=== PATIENT | female | born 1950 | race Caucasian/White ===

== ENCOUNTER 2017-10-30 11:00 | Outpatient (RCR) | payer MEDICARE, OTHER ==
[2017-10-28 13:45] VITALS: BP 135/90
[2017-10-28 14:21] LABS: PLATELET COUNT, AUTOMATED 229 K/uL (150-450)
[2017-10-28 14:36] LABS: LDL CHOLESTEROL 149 mg/dl
[~2017-10-30] VITALS: Ht 167.6 cm; Wt 68.0 kg
[~2017-10-30 11:00] MED LIST: ACE3 PO; ACET-2031 PO; ANAS1TAB34 PO; CALC500T6 PO; ERGO400T9 PO; FLAX100041 PO; GLUC100026 PO; LOSA-54 PO; METO-235 PO; MULT-1372 PO; MULT1CAP59 PO; [UNRECOGNIZED DRUG - REMARK] PO
[2017-10-30 11:07] VITALS: BP 145/89
--- NOTE | 2017-10-30 19:13 | ONCOLOGY FOLLOW UP NOTE ---
EVENT DATE: October 30, 2017 REASON FOR FOLLOWUP Breast cancer. INTERIM HISTORY Ms. Lang returns to clinic for a follow-up visit today. She reports that she has been feeling quite well in general. 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 She continues to take anastrozole 1 mg p.o. daily. She has had minimal if any side effects from the medication. She reports very little hot flashes. Her energy level is good. Her appetite is good, and her weight has been stable. Her mood has been good, as well. She has noticed no breast or skin changes. She has noticed no lumps or bumps under the arms. She denies shortness of breath, chest pain, or cough. She has had no changes in her bowel habits. She is quite happy about how things are going. She tends to stay quite active, and she eats a healthful diet. She does report a history of slightly elevated calcium in the past. She had been taking a calcium supplement previously. She has kept up with bone mineral density scans, as well as mammograms, with mammogram recently performed being unremarkable. She is here to establish care in my clinic here in [place]. She had previously been followed by Dr. Lc vega. REVIEW OF SYSTEMS Otherwise negative, and all systems were reviewed. ONCOLOGY HISTORY 1. Initial diagnosis of breast cancer in 2002, reportedly T2 N0 M0, ER negative , HER2 negative. Status post lumpectomy and adjuvant radiation therapy. 2. Left breast cancer diagnosed May,. a. July 11, 2011: Left mastectomy, and reconstruction is performed. No residual tumor was noted from original biopsy specimen, which had shown an invasive component of 0.3 cm or less. She had 0/5 lymph nodes positive at that time. ER positive, NM negative, HER2 negative. b. November 21, 2011: Patient initiates adjuvant Arimidex. c. Patient has had ongoing clinical surveillance, as well as right mammograms which have shown no evidence of malignancy. She has had routine DEXA scans, as well. PAST MEDICAL HISTORY 1. History of breast cancer, as above. 2. History of mild hypercalcemia, thought potentially to be due to calcium supplementation. 3. Hypertension. 4. Reported history of osteopenia. CURRENT MEDICATIONS 1. Anastrozole 1 mg p.o. daily. 2. Losartan/hydrochlorothiazide daily. 3. Glucosamine daily. 4. Flaxseed oil daily. 5. Multivitamin daily. 6. Vitamin D supplement daily. ALLERGIES KEFLEX. 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 There is no history of alcohol abuse or illicit drug use. FAMILY HISTORY There is a reported family history of colon cancer as well as gastric cancer. VITAL SIGNS Temperature is 97.0, blood pressure 145/89, heart rate is 88, respirations 16, oxygen saturation is 97% on room air. Weight is 68 kg. PHYSICAL EXAMINATION GENERAL: Patient is alert and oriented times three, in no acute distress sitting in the exam room chair. She is interactive and quite pleasant. She appears very healthy. HEENT: Exam reveals anicteric sclerae. NEUROLOGIC: Exam is grossly nonfocal. EXTREMITIES: Exam reveals no edema, clubbing or cyanosis. SKIN: Exam reveals no concerning rash or lesions. BREASTS: Exam is deferred today, as she had a breast exam that was reportedly negative two months ago. LABORATORY Studies are reviewed per the [email or web address] record. Her calcium is modestly elevated at 10.5. Lipid panel is reviewed, as well. IMAGING Mammogram from September 04, 2017 shows BI-RADS category 2 (no significant abnormality is seen, benign findings). Also bone mineral density study from July 10, 2016 shows normal bone mineral density in the lumbar spine and left total hip. ASSESSMENT AND PLAN 1. Breast cancer. I had a very good visit with Ms. Lang today. Symptomatically, she is doing remarkably well. 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 We spent a good deal of time today discussing her ongoing treatment with adjuvant anastrozole. She began taking it in November 2011, and she is now almost six years out from initiation of adjuvant endocrine therapy. We discussed conceptually the potentially benefits of extended adjuvant therapy, and some of the recent literature suggestions. Her tumor was quite small, and her risk of recurrence is quite low. That said, she tolerates the aromatase inhibitor without any significant toxicity that I can discern today. In addition, her bone mineral density at last check was normal. I have recommended that she have a repeat bone mineral density study performed. This will be ordered today. If we have to wait two years from her last study, it would be performed this fall. She has no concerning signs or symptoms to suggest breast cancer recurrence today. I have recommended that she continue doing what she is doing in terms of exercise and nutrition. I will plan to see her back in six months. She will have routine labs drawn prior to that visit to include CBC and CMP, but I have recommended against routine monitoring of tumor markers in the adjuvant setting. She agrees with this plan. 2. Mild hypercalcemia. She does seem to have some heartburn symptoms upon talking about her taking Tums at home. She will at least need to take two of these tablets a day, which could account for some elevation in her calcium. I have recommended that she not take calcium, but instead consider taking Zantac or Pepcid, which she believes she already has at home. She will keep us posted on affect on her heartburn. She will continue on vitamin D supplementation. She reports that a parathyroid workup had been performed in the past. If her calcium remains elevated at the time of her followup, we will repeat a parathyroid hormone level and go from there. 3. Concern for cholesterol. We did review her lipid panel today that was drawn a couple of days ago. She is aware that the aromatase inhibitor class can cause problems with her cholesterol. I will be sure to reach out to her primary care provider to make her aware of the cholesterol panel results, which at my first glance are not particularly concerning. I spent a total of 30 minutes of total time face to face with the patient today. This included 25 minutes of time spent in direct counseling and coordination of care. JOSE
== END 2017-11-08 09:05 | disposition home or self-care (01) ==
LOC: ONC 11:00
PROVIDERS: ATTEND Internal Medicine Medical Oncology
DX: Z85.3 Personal history of malignant neoplasm of breast (principal); E83.52 Hypercalcemia; Z79.899 Other long term (current) drug therapy
CPT/HCPCS: 36415; 82306; 82378; 85025; 86300; G0463; 82040; 82247; 82310; 82374; 82435; 82465; 82565; 82947; 83718; 84075; 84132; 84155; 84295; 84450; 84460; 84478; 84520; 99212

== ENCOUNTER → 2018-08-26 | Outpatient (CLI) | payer MEDICARE, OTHER ==
--- NOTE | 2018-08-26 14:40 | RADIOLOGY IMAGING REPORT ---
FACILITY: [facility] PATIENT NAME: Macey Lang : 1950 MR: [id number] V: [id number] EXAM DATE: ORDERING PHYSICIAN: REGINE GOLDSTEIN TECHNOLOGIST: Location: [facility] Patient: Macey Lang : 1950 Visit/Account:[id number] Date of Sevice: 08/26/2018 DEXA Scan Clinical history: Osteopenia. Comparison: DEXA scan from 07/10/2016. LUMBAR SPINE: The bone mineral density (BMD) measured from L1-L4 correlates with a Z-score 1.3 and a T-score of -0 .2 which is Normal as defined by the World Health Organization. The corresponding risk of fracture i n the lumbar spine is Not increased compared with a young adult reference population. This value has increased by 1.0 % since the prior study. More than 5% change is considered significant. HIP: Bone mineral density (BMD) measured in the Left femoral neck region correlates with a Z-score 0.5 and a T-score of -0.9 which is Normal as defined by the World Health Organization. The corresponding risk of fracture in the hip is Not increased compared with a young adult reference population. The to diane hip value has decreased by 0.1 % since the prior study. More than 5% change is considered signif icant. Bone mineral density (BMD) measured in the Femoral Neck region measures 0.915 g/cm2. IMPRESSION: 1. Lumbar spine: Normal. There has been increase in the bone mineral density since the previous exa m. 2. Left femoral neck region: Normal. There has been decrease in the bone mineral density of the tot al hip since the previous exam. 3. Femoral Neck: Bone Mineral Density is 0.915 g/cm2 The next DEXA scan of this patient should include the following sites: L1-L4 and the left hip. FRAX? WHO Fracture Risk Assessment Tool link: <http://www.shef.ac.uk/FRAX/tool.jsp?locationValue=9> PLEASE NOTE: 1) The World Health Organization defines low BMD as follows: T-score Normal > -1 Osteopenia < -1 and > -2.5 Osteoporosis < -2.5 without fractures Established osteoporosis < -2.5 with fractures 2) In general, you may wish to consider: Diagnosis Treatment Follow-up DEXA Normal BMD Prevention 2-3 years Osteopenia Prevention/therapy 1-2 years Osteoporosis Therapy Yearly 3) Fracture risk estimated from the T-score is more accurate for vertebral fractures (often spontane ous) than for hip fractures. Report Dictated By: Emilio Haddad at 08/26/2018 2:34 PM Report E-Signed By: Emilio Haddad at 08/26/2018 2:36 PM WSN:[id number]
--- NOTE | 2018-09-04 15:17 | RADIOLOGY IMAGING REPORT ---
FACILITY: [facility] [place] PATIENT NAME: MAGDA CHOI : [id number] MR: [id number] V: [id number] EXAM DATE: [id number] ORDERING PHYSICIAN: REGINE GOLDSTEIN TECHNOLOGIST: Светлана Aggarwal PROCEDURE: MAMMOGRAM SCREENING RIGHT WITH CAD ASSISTED INTERPRETATION & 3D TOMOSYNTHESIS COMPARISON: None. INDICATIONS: screening FINDINGS: The breast is heterogeneously dense. A few benign appearing calcifications are scattered in the Right breast. No suspicious masses are identified. DIAGNOSTIC CATEGORY 1--NEGATIVE. RECOMMENDATIONS: ROUTINE MAMMOGRAM AND CLINICAL EVALUATION IN 1 YR. IMPRESSION: BIRADS 1: Negative. Dictated by: Abdelrahman Brown M.D. on 08/27/2018 at 14:23 Transcribed by: RAY on 08/27/2018 at 14:42 Approved by: Emilio Lezama on 09/04/2018 at 15:16 [facility]
== END ==
LOC: MAMO 00:48
PROVIDERS: ATTEND Nurse Practitioner Family
DX: Z13.820 Encounter for screening for osteoporosis (principal); Z12.31 Encounter for screening mammogram for malignant neoplasm of breast; E28.39 Other primary ovarian failure
CPT/HCPCS: 77063; 77067; 77080

== ENCOUNTER → 2018-08-28 | Outpatient (CLI) | payer MEDICARE, OTHER ==
[2018-08-28 09:26] LABS: PLATELET COUNT, AUTOMATED 220 K/uL (150-450)
== END ==
LOC: LAB 08:50
PROVIDERS: ATTEND Nurse Practitioner Family
DX: Z00.00 Encounter for general adult medical examination without abnormal findings (principal); Z85.3 Personal history of malignant neoplasm of breast; R53.83 Other fatigue; I10 Essential (primary) hypertension
CPT/HCPCS: 36415; 82040; 82247; 82310; 82374; 82435; 82465; 82565; 82947; 83718; 84075; 84132; 84155; 84295; 84443; 84450; 84460; 84478; 84520; 85025

== ENCOUNTER → 2019-02-16 | Outpatient (CLI) | payer MEDICARE, OTHER | LOC: SPU 08:37 | PROVIDERS: ATTEND Nurse Practitioner Family | DX: I10 Essential (primary) hypertension (principal); E78.5 Hyperlipidemia, unspecified; M25.562 Pain in left knee; M25.561 Pain in right knee; R53.83 Other fatigue | CPT/HCPCS: 82465; 82670; 83718; 84144; 84403; 84443; 84478 ==

== ENCOUNTER 2019-02-19 10:26 | Outpatient (RCR) | payer MEDICARE, OTHER ==
[2019-02-16 08:54] VITALS: BP 139/83
[2019-02-16 08:55] LABS: PLATELET COUNT, AUTOMATED 203 K/uL (150-450)
[2019-02-19 10:41] VITALS: BP 127/69
[2019-02-19] MEDS ORDERED: ANAS1TAB34 PO (11:22)
--- NOTE | 2019-02-19 21:23 | ONCOLOGY FOLLOW UP NOTE ---
EVENT DATE: February 19, 2019 CHIEF COMPLAINT Macey is here today for ongoing followup for her breast cancer. DIAGNOSIS Left breast cancer, ER positive, WI negative, HER2 negative, status post left mastectomy and reconstruction in June 2011. INTERIM HISTORY Ms. Lang returns to clinic for a followup visit today. She reports that she has been feeling quite well in general. 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 She continues to take anastrozole 1 mg p.o. daily. She has had minimal, if any, side effects from the medication. She reports very little hot flashes. Her energy level is good. Her appetite is good, and her weight has been stable. Her mood has been good as well. She has not noticed any breast or skin changes. She has not noticed any lumps or bumps under the arms. She denies any shortness of breath or chest pain. No bowel changes. She reports that she remains quite active and is following a healthy diet, mostly gluten- free. She does have some arthritic pains. She has had a steroid injection to the left knee as well as some collagen injection there, though this did not prove effective. In the past, she has had an elevated calcium, and this may have been attributed to a calcium supplement. She has kept up with bone mineral density scans as well as mammograms. She tells me that she's mainly here today simply so we can refill her anastrozole as she has been feeling quite well. She does report occasional leg cramps in the form of charley horses. She does report that she is on her legs quite a bit but elevates these. She stays busy with her grandchildren as well. ONCOLOGY HISTORY 1. Initial diagnosis of breast cancer in 2002, reportedly T2 N0 M0, ER negative, HER2 negative. Status post lumpectomy and adjuvant radiation therapy. 2. Left breast cancer diagnosed May,. a. July 11, 2011: Left mastectomy and reconstruction are performed. No residual tumor was noted from original biopsy specimen, which had shown an invasive component of 0.3 cm or less. She had 0/5 lymph nodes positive at that time. ER positive, WI negative, HER2 negative. b. November 21, 2011: Patient initiates adjuvant Arimidex. c. Patient has had ongoing clinical surveillance as well as right mammograms, which have shown no evidence of malignancy. She has had routine DEXA scans as well. PAST MEDICAL HISTORY 1. History of breast cancer, as above. 2. History of mild hypercalcemia, thought potentially to be due to calcium supplementation. 3. Hypertension. 4. Reported history of osteopenia. 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 There is no history of alcohol abuse or illicit drug use. FAMILY HISTORY There is a reported family history of colon cancer as well as gastric cancer. CURRENT MEDICATIONS 1. Anastrozole 1 mg p.o. daily. 2. Losartan/hydrochlorothiazide daily. 3. Glucosamine daily. 4. Flaxseed oil daily. 5. Multivitamin daily. 6. Vitamin D supplement daily. ALLERGIES KEFLEX. REVIEW OF SYSTEMS CONSTITUTIONAL: Patient denies any recent fevers, chills, or night sweats. No recent infections. HEENT: She denies any abnormal nasal drainage or mouth sores. No vision changes or hearing loss. RESPIRATORY: No cough, sputum production, or hemoptysis. No pleuritic chest pain. CARDIOVASCULAR: No syncope or presyncope. BREASTS: No new breast pain. No lumps. GASTROINTESTINAL: No abdominal pain, nausea, vomiting, constipation, diarrhea, bright red blood per rectum, or melena. Appetite is normal. GENITOURINARY: No dysuria, hematuria, or genitourinary discharge. No abnormal vaginal bleeding. MUSCULOSKELETAL: She has some arthritic-type pains. She has some degenerative- type pains in her knees. She has had steroid injections in the left knee in the past. She has some leg pain at times, usually from being on her feet all day. She gets leg cramps/ charley horses quite often at night. ENDOCRINE: She denies any heat or cold intolerance. No vasomotor symptoms. Energy level is good. PSYCHIATRIC: She denies any severe anxiety, severe depression, suicidal or homicidal ideation. NEUROLOGIC: She denies any headache, seizure-like activity, or paresthesias. The remainder of a 12-point review of systems is performed today and is otherwise negative. PHYSICAL EXAMINATION VITAL SIGNS: T 97.4, P 71, R 16, BP 127/69, oxygen saturation 97% room air. GENERAL: In general, this is a pleasant 68-year-old woman who appears well hydrated, well nourished, and is in no acute distress. HEAD: Atraumatic, normocephalic. EYES: Sclerae anicteric. ENT, MOUTH: Moist mucous membranes. No mucositis. NECK: Supple. No lymphadenopathy. LUNGS: Clear breath sounds to auscultation bilaterally. CARDIOVASCULAR: Regular rate and rhythm. No ectopy. BREASTS: Well-healed left mastectomy scar. There is some scar tissue. No axillary adenopathy. Right-sided breast exam reveals no palpable lumps, nipple discharge, or skin changes. No right-sided axillary adenopathy. LYMPHATICS: No cervical, supraclavicular, or axillary lymphadenopathy. GASTROINTESTINAL: Abdomen soft, nontender, nondistended. Bowel sounds positive x4. EXTREMITIES: No edema. No clubbing or cyanosis. NEUROLOGIC: Patient is awake, alert, oriented x3. PSYCHIATRIC: Mood and affect are appropriate. MUSCULOSKELETAL: Gait is steady. LABORATORY Labs on 02/16/19: CBC revealed WBC 5.2, ANC 3.4, hemoglobin 13.7, hematocrit 39.8%, platelets 203,000. CMP on that date was completely normal. Cholesterol panel revealed mildly elevated total cholesterol at 206, stable compared to last cholesterol on 08/28/18. Triglycerides are 99, LDL 97, HDL 89, VLDL 20. TSH normal at 2.43. Progesterone was reported at less than 0.10. Total estradiol and free testosterone are still pending. IMAGING Right-sided mammogram on 08/27/2018: The breast is heterogenously dense. Three benign-appearing calcifications are scattered in the right breast. No suspicious masses are identified. Diagnostic category 1 is negative. DEXA scan on 08/26/18: 1. Lumbar spine is normal. There has been increase in the bone mineral density since a previous exam. 2. Left femoral neck region is normal. There has been decrease in the bone mineral density of the total hip since the previous exam. 3. Femoral neck: Bone mineral density is 0.95 g/cm2. The next DEXA scan of this patient should include the following sites: L1 to L4 in the left hip. IMPRESSION AND PLAN This is a pleasant 68-year-old woman with breast cancer as noted above. Symptomatically, she is doing remarkably well. 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 She has been tolerating adjuvant treatment with anastrozole quite well. She began anastrozole in November 2011 and is now nearly seven years out from initiation of adjuvant endocrine therapy. At her last visit, we discussed the potential benefits of extended adjuvant therapy as well as the recent literature suggestions. Her tumor was quite small, and risk of recurrence is low. That said, she does tolerate aromatase inhibitor therapy without any significant toxicities. Most recent bone mineral density in August 2018 was normal. We will continue with annual mammograms and every other year DEXA scans. She is maintaining her weight and remains quite active with exercise and her nutrition. She reports that she will be following up with her GI physician later this year for routine colonoscopy. She also has some arthritis and has had steroid injection to the left knee, though this only helped alleviate pain for a couple of weeks. 1. Adjuvant endocrine therapy: At this point, patient is tolerating anastrozole well, and we will continue with this as she is already seven years into treatment. I have e-prescribed refills for that today. 2. Leg cramps/charley horses: We reviewed her most recent labs. She doesn't have any electrolyte abnormalities. Patient would like to try more natural- based therapy if possible. She also has contributing knee pain, with steroid injection done in the past that she reports was quite painful. For her leg cramps, I have suggested that she try to increase potassium and magnesium-rich foods and she can also try some pickle juice or tonic water. I also gave her the name of a particular [id number] lotion which works particularly well for tired legs. She may also use compression stockings, even the sport compression stockings during the day if her legs become tired. She is to use those p.r.n. and continue to elevate her legs. 3. I have recommended that she follow up in at least six months, although patient tells me that she typically comes in only annually and when she needs refill on medication. We did not discuss repeat mammogram, but she is aware that we will continue to need annual mammograms. JOSE
== END 2019-03-23 12:56 | disposition home or self-care (01) ==
LOC: ONC 10:26
PROVIDERS: ATTEND Internal Medicine Medical Oncology
DX: C50.912 Malignant neoplasm of unspecified site of left female breast (principal); Z17.0 Estrogen receptor positive status [ER+]; Z79.811 Long term (current) use of aromatase inhibitors; R25.2 Cramp and spasm; M62.831 Muscle spasm of calf; Z79.899 Other long term (current) drug therapy
CPT/HCPCS: 36415; 82670; 84144; 84403; 84443; 85025; G0463; 82040; 82247; 82310; 82374; 82435; 82465; 82565; 82947; 83718; 84075; 84132; 84155; 84295; 84450; 84460; 84478; 84520; 99212